=== PATIENT | male | born 1970 | race Caucasian/White ===

== ENCOUNTER 2019-01-12 18:08 | Emergency (ER) | payer MEDICAID ==
[~2019-01-12] VITALS: Ht 167.6 cm; Wt 90.7 kg
[2019-01-12 18:25] VITALS: BP 160/96
--- NOTE | 2019-01-12 18:30 | NUR ---
PT AMBULATES TO BED 8 Addendum: 01/12/19 at 1830 by [facility] BED 9
--- NOTE | 2019-01-12 19:20 | NUR ---
PT BIB SELF C/O CHEST AND ARM PAIN. PT STATES HE HAS INTERMITTENT CHEST AND ARM PAIN X1 WEEK, PAIN IS 3/10 AT THIS TIME. PT STATES HE STARTED HAVING A SOAR THROAT TODAY. SPEECH CLEAR. ARM STRENGTH STRONG, AND EQUAL BL. SMILE SYMETRICAL. --DENIES N/V/D; SKIN IS PINK/WARM/DRY; AAOX4 WITH EVEN AND STEADY GAIT; LUNGS CLEAR BL; HR EVEN AND REGULAR; PT DENIES ANY FEVER, SOB, OR COUGH AT THIS TIME; VSS; PATIENT POSITIONED FOR COMFORT; HOB ELEVATED; BEDRAILS UP X1; BED DOWN. ER MD MADE AWARE OF PT STATUS. PMH: HYPERLIPIDEMIA RX: PT CANT RECALL NAME
[2019-01-12 20:48] LABS: BASOPHILS % (AUTO) 0.4 % (0.0-2.0); EOSINOPHILS # (AUTO) 0.2 K/uL (0-0.4); EOSINOPHILS % (AUTO) 2.3 % (0.0-4.0); HEMATOCRIT 47.6 % (36-52); LYMPHOCYTES # (AUTO) 2.8 K/uL (2.0-11.5); LYMPHOCYTES % (AUTO) 42.3 % (20.5-51.1); MEAN CORPUSCULAR HEMOGLOBIN 29 pg (27-31); MEAN CORPUSCULAR HGB CONC 34 g/dL (33-37); MEAN CORPUSCULAR VOLUME 86.4 fL (80-94); MONOCYTES % (AUTO) 15.6 % (1.7-9.3); NEUTROPHILS # (AUTO) 2.6 K/uL (1.8-7.7); NEUTROPHILS % (AUTO) 39.4 % (42.2-75.2); PLATELET COUNT (AUTO) 250 K/uL (140-450); RED BLOOD CELL COUNT(AUTO) 5.51 MIL/uL (4.20-6.10); RED CELL DISTRIBUTION WIDTH 13.3 % (11.6-13.7); WHITE BLOOD COUNT (AUTO) 6.7 K/uL (4.8-10.8)
[2019-01-12 21:05] LABS: ANION GAP 8.2 (8-16); CARBON DIOXIDE 31.6 mmol/L (21-32); POTASSIUM 3.8 mmol/L (3.5-5.1)
[2019-01-12 21:11] LABS: ALBUMIN 4.2 g/dL (3.4-5.0); TOTAL BILIRUBIN 0.4 mg/dL (0.0-1.0)
[2019-01-12 21:38] VITALS: BP 152/87
== END 2019-01-12 21:38 | disposition home or self-care (01) ==
LOC: MED 18:08
DX: R07.89 Other chest pain (principal); R51 Headache; J02.9 Acute pharyngitis, unspecified
CPT/HCPCS: 36415; 71045; 80053; 84484; 85025; 93005; 99284; Q0092